=== PATIENT | male | born 1995 | race Caucasian/White ===

== ENCOUNTER → 2019-03-20 | Outpatient (REF) | payer OTHER | LOC: M SFHCLERA 15:30 | PROVIDERS: ATTEND Physician Assistant | DX: B02.9 Zoster without complications (principal) | CPT/HCPCS: 87252; G0463 ==

== ENCOUNTER 2021-01-19 05:23 | Inpatient (IN) | payer OTHER ==
[~2021-01-19] VITALS: Ht 170.2 cm; Wt 63.6 kg
[2021-01-19] MEDS ORDERED: IBUP1TAB7 PO (05:52)
[2021-01-19 06:11] LABS: HEMATOCRIT 46.3 % (42.0-52.0); HEMOGLOBIN 15.6 g/dl (13.5-17.5); MEAN CORPUSCULAR HGB CONC 33.7 g/dl (32.0-36.5); MEAN CORPUSCULAR VOLUME 83.1 fl (80.0-96.0); PLATELET COUNT, AUTOMATED 331 10^3/uL (150-450); RED BLOOD COUNT 5.57 10^6/uL (4.30-6.10); WHITE BLOOD COUNT 6.5 10^3/uL (4.0-10.0)
[2021-01-19 06:38] LABS: AMPHETAMINES LEVEL URINE NEGATIVE (NEGATIVE); BARBITURATES URINE NEGATIVE (NEGATIVE); BENZODIAZEPINES URINE NEGATIVE (NEGATIVE); CANNABINOIDS URINE NEGATIVE (NEGATIVE); COCAINE METABOLITE URINE NEGATIVE (NEGATIVE); METHADONE URINE NEGATIVE (NEGATIVE); OPIATES URINE NEGATIVE (NEGATIVE); PHENCYCLIDINE URINE NEGATIVE (NEGATIVE)
[2021-01-19 06:59] LABS: ACETAMINOPHEN LEVEL < 2.0 UG/ML (10.0-30.0); ALBUMIN 4.6 GM/DL (3.2-5.2); ALT/SGPT 19 U/L (12-78); BILIRUBIN,DIRECT 0.1 MG/DL (0.0-0.2); BILIRUBIN,TOTAL 0.3 MG/DL (0.2-1.0); BLOOD UREA NITROGEN 9 MG/DL (7-18); CALCIUM LEVEL 8.9 MG/DL (8.5-10.1); CARBON DIOXIDE LEVEL 28 MEQ/L (21-32); CHLORIDE LEVEL 105 MEQ/L (98-107); CREATININE FOR GFR 0.86 MG/DL (0.70-1.30); ETHYL ALCOHOL (ETHANOL) 0.155 % (0.000-0.010); GLOMERULAR FILTRATION RATE > 60.0 (>60); GLUCOSE, FASTING 100 MG/DL (70-100); POTASSIUM SERUM 4.4 MEQ/L (3.5-5.1); SALICYLATE LEVEL < 1.7 MG/DL (5.0-30.0); SODIUM LEVEL 141 MEQ/L (136-145); TOTAL PROTEIN 8.1 GM/DL (6.4-8.2)
[2021-01-19 16:00] LABS: RSV AMPLIFICATION NEGATIVE (NEGATIVE)
[2021-01-20] MEDS ORDERED: NICOTINE 21MG/24HR 1 EA TRANSDERMAL TD SCH (09:00)
[2021-01-20] MEDS ORDERED: traZODone 50 MG TAB PO PRN ×2 (19:00→19:10)
[2021-01-20] MEDS ORDERED: ACETAMINOPHEN TAB 650MG DOSE (2X325MG) PO PRN ×2 (19:00→19:10)
[2021-01-20] MEDS ORDERED: MOM 30ML SUSPENSION UDC PO PRN ×2 (19:00→19:10)
[2021-01-20] MEDS ORDERED: OLANZapine ORAL DISINTEGRATING TAB 5MG PO PRN ×2 (19:00→19:10)
[2021-01-20] MEDS ORDERED: hydrOXYzine 25 MG TAB PO PRN ×2 (19:00→19:10)
[2021-01-20] MEDS ORDERED: MAALOX 30 ML SUSP *UDC PO PRN ×2 (19:00→19:10)
[2021-01-20 21:34] VITALS: BP 138/95
[2021-01-20 22:00] VITALS: BP 138/95
[2021-01-20] MEDS ORDERED: LORazepam 2 MG TAB PO PRN (23:00)
[2021-01-20] MEDS: THIAMINE 100 MG TAB PO SCH (23:05)
[2021-01-21 06:00] VITALS: BP 131/72
[2021-01-21] MEDS: FOLIC ACID 1 MG TAB PO SCH (09:41)
[2021-01-21] MEDS: MULTIVITAMINS/MINERALS THERAP 1 TAB PO SCH (09:41)
[2021-01-21] MEDS: THIAMINE 100 MG TAB PO SCH ×2 (09:41→22:19)
--- NOTE | 2021-01-21 13:01 | MHHPEPDOC ---
General Date Of Admission: Jan 20, 2021 Legal Status: 9.39 Chief Complaint "I got drunk and I said I was going to off myself. 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 He reports that he "Went out and got drunk and his friend called MPs because he states "I might have said that I was offing myself." Reports depression off and on since age 14-13, but denies any increase depression and states he had one suicidal gesture by hanging but was interrupted by his Uncle. He denies that he is currently depressed or anxious, denies any psychotic symptoms. He is not interested in any medications for depression. States that he does not have problem with alcohol use. PER ED REPORT: Pt has been drinking alcohol. Pt was brought to the ED on a 9.41 after pt called CQ reporting feeling down/depressed and stating he wanted to kill himself. Per MP, pt. roommate was on CQ duty and came to him and stated he was having thoughts of harming himself. Pt states "I was feeling like shit yesterday, started drinking with the guys, thought I'd feel better, and blacked out texted CQ to come to my room. We went to smoke a cigarette and I'm pretty sure he just asked if I wanted to kill myself, I said yes and he called the MP's then I went back to my room to listen to music." Pt reports he has had fleeting suicidal thoughts since the age of 14. Reports no significant event, trauma, or abuse that resulted in his mental health problems as a child. Pt reports he has no specific stressors right now, and that "nothing really aggravates it, some days it just sits there, somedays are better than others. Reports having suicidal thoughts a couple times a week, but states "strong ones like last night, not as often." Pt reports he began feeling depressed at age 14 and sought outpatient therapy from ages [age] years, but reports he did not find therapy to be beneficial. Pt currently denies any OP tx. Pt reports when his suicidal thoughts are prominent, he stops eating, and is unable to sleep, and his depression increases. Pt reports he often hides in his room and waits for these thoughts to pass. Pt reports he has fleeting suicidal thoughts a couple of times per week. Pt reports having strong suicidal thoughts, such as last night, happens less often, about every couple of months. Pt reports that he has prepared to attempt to end his life, one time at the age of 16 and states he was going to hang himself, but that he stopped himself before he followed through with his plan. 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 Pt reports he has been at [facility] for almost 4 years and that he has had one deployment to [facility] in [id number]. When asked what pt.s goal from his visit was, pt stated "When I was drunk I wanted to feel better so i came to the hospital now I just want to go back to work." Psychiatric Review of Systems Depression (2 or more weeks): depressed mood, insomnia/hypersomnia (reports that during the week he only gets about 2-3 hours of sleep but will sleep excessively on the weekends. ), suicidal thoughts Grecia (4 or more days of): decreased need for sleep, denies Psychosis: denies PTSD: denies Anxiety: denies Past Psychiatric History Previous Psychiatric Diagnosis: ADD Previous Psychiatric Admissions: None in the past Suicide Attempts: States he had a suicidal gesture when he was 15-14, Uncle stopped him (he had a rope but did not actually make the attempt Psychiatric Follow-up: None currently, will follow up with [facility] Psychiatric medications: None Past Medical History Head Injury: No Seizures: No Hospitalizations: No Surgeries: No Family Medical/Psychiatric HX Psychiatric Disorders: No Addiction: No Suicide Attemps/Completions: No Addiction History alcohol (Last drink 01/20/21, drinks a fifth of ETOH daily, states that this is "not a problem" although drinks more on the weekend) Social History Childhood: Born in [place] to both parents. Describes his childhood as "normal" he has one older brother, 2 younger brothers. He was home schooled and then he started public school in the sixth grade Abuse/Trauma: Denies any childhood trauma or abuse. He also denies being a victim of crime. Current Living Situation: Living on post in the [facility]. Education: High school graduate. Employment:, Active duty soldier. Social Support: He denies that he has any social supports. Legal: None. Marital: Single, not , no children Stressors: Work. 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 Mental Status Examination General Appearance: well groomed, appears stated age, hospital scubs/clothing Build: average Demeanor: withdrawn, guarded Eye Contact: fair Activity: average Behavior: cooperative Speech: normal volume, reg/rate,rhythm,volume Mood: depressed Affect: constricted Thought Process: logical/linear Thought Content (Delusions): none reported Thought Content (Aggressive): none reported Perception (Hallucinations): none reported Perception (Other): none reported Cognition (Impairment of): none reported Cognition(Intelligence Est.): average Oriented: Awake, Alert, Oriented times three Insight: fair Judgment: Fair Psychosis: Denies Diagnoses Unspecified Depressive Disorder Alcohol Intoxications Alcohol Induced Depressive Disorder rule out Persistent Depressive Disorder A-FIB/CHADSVASC A-FIB History Current/History of A-Fib/PAF?: No Current PO Anticoag Therapy: No Assessment 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 He denies that he is currently depressed or anxious, denies any psychotic symptoms. He is not interested in any medications for depression. States that he does not have problem with alcohol use although admits to drinking daily. Patient's depression symptoms are depressed mood, anhedonia, insomnia, suicidal thoughts and he reports persistent depressive symptoms since he was a young teen. . He denies symptoms of grecia, psychotic symptoms, denies auditory, visual or tactile hallucinations. Denies delusions, paranoia, denies any history of trauma, denies anxiety. He denies any chronic or acute medical history. Reports that he has been diagnosed with ADD was taken Ritalin when he was younger but stated that it made him feel like a zombie. Mental status exam patient is well groomed, appears his stated age, wearing hospital scrubs and sitting in the chair in the interview room, sitting upright. He has average build, average demeanor & contact is good to fair activity is average. He is calm and cooperative in the interview, review somewhat withdrawn and guarded. Speech is normal rate, tone and volume. Mood is depressed. Affect is constricted. He is linear and goal oriented and his thought process. Denies any abnormal thought contents of d elusions, grandiosity, persecuted toward her. He obsessions, somatic complaints, no impairment of memory, attention or concentration. Intelligence is average. Patient's alert and oriented to person, place, time and situation. His insight and judgment is fair. Treatment plan to admit to my service. Patient declines any antidepressant medications. Reviewed antidepressant medications with him again. He declined. Encourage the patient to consider trazodone for sleep. Patient to be observed for 24-48 hours. 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 Patient was admitted on a [9.39] status. 2. Complete history was obtained. 3. With patients permission, family will be contacted and database will be expanded. 4. Patients medication regimen will be reviewed and changed accordingly. 5. Patient will be provided with protected environment. 6. Patient will be treated with individual, group, and milieu therapies. 7. Patient will receive supportive psych-education. 8. Discharge planning will commence immediately. 9. Outpatient follow-up treatment will be strongly recommended. 10. The initial treatment plan will focus initially on: * Depression. * Risk for suicide. ESTIMATED LENGTH OF STAY: 1-3 DAYS. TIME SPENT COUNSELING AND COORDINATING INITIAL CARE: 60 minutes. N/A-No Antipsychotics Vital Signs Vital Signs Date Time Temp Pulse Resp B/P (MAP) Pulse Ox O2 Delivery O2 Flow Rate FiO2 01/21/21 06:00 60 131/72 01/21/21 06:00 98.0 16 100 Room Air Medications Scheduled PRN Ibuprofen (Ibuprofen) 800 Mg Tablet, 800 MG PO TID PRN for PAIN, (Reported) Allergies Coded Allergies: No Known Allergies (Unverified , 01/19/21) THU MACKEY NP Jan 21, 2021 09:57
--- NOTE | 2021-01-21 13:06 | HPEPDOC ---
General Date of Admission Jan 20, 2021 at 19:10 Date of Service: Jan 21, 2021 Chief Complaint The patient is a 25-year-old male admitted with a reason for visit of Unspecified Depressive Disorder. 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 He is being examined here for medical history and physical. He does not offer any complaints today Home Medications Scheduled PRN Ibuprofen (Ibuprofen) 800 Mg Tablet, 800 MG PO TID PRN for PAIN, (Reported) Allergies Coded Allergies: No Known Allergies (Unverified , 01/19/21) Past Medical History Medical History Herpes zoster infection on the left chest in 2019, Heavy alcohol use, Depression Family History Significant Family History: Diabetes (Paternal grandfather) Social History * Smoker: current smoker, other (with a) Alcohol: occationally Drugs: denies A-FIB/CHADSVASC A-FIB History Current/History of A-Fib/PAF?: No Review of Systems Constitutional: Denies: Chills, Fever, Night Sweats Eyes: Denies: Pain, Vision change ENT: Denies: Head Aches, Ear Pain, Dysphagia Skin: Denies: Rash, Lesions, Breakdown Pulmonary: Denies: Dyspnea, Cough Cardiovascular: Denies: Chest Pain, Palpitations, Orthopnea, Paroxysmal Noc. Dyspnea, Lt Headedness Gastrointestinal: Denies: Nausea, Vomiting, Abdominal Pain, Diarrhea Genitourinary: Denies: Dysuria, Frequency, Incontinence, Retention Hematologic: Denies: Bruising, Bleeding Excessively Musculoskeletal: Denies: Neck Pain, Back Pain, Joint Pain, Muscle Pain, Spasms Neurological: Denies: Weakness, Numbness, Change in speech, Confusion Psych: Denies: Memory Issues Physical Examination General Exam: Positive: Alert, Cooperative, No Acute Distress Eye Exam: Positive: PERRLA, Conjunctiva & lids normal, EOMI; Negative: Sclera icteric ENT Exam: Positive: Atraumatic, Mucous membr. moist/pink, Pharynx Normal Neck Exam: Positive: Supple; Negative: JVD, thyromegaly Chest Exam: Positive: Clear to auscultation, Normal air movement Heart Exam: Positive: Rate Normal, Regular Rhythm, Normal S1, Normal S2; Negative: Murmurs, Rubs Telemetry: Positive: No significant arrhythmia Abdomen Exam: Positive: Normal bowel sounds, Soft; Negative: Tenderness, Hepatospenomegaly Extremity Exam: Positive: Normal pulses; Negative: Clubbing, Cyanosis, Edema Skin Exam: Positive: Nl turgor and temperature; Negative: Breakdown, Lesion Neuro Exam: Positive: Normal Gait, Normal Speech, Strength at 5/5 X4 ext, Normal Tone Psych Exam: Positive: Memory Intact, Oriented x 3 Vital Signs Vital Signs Date Time Temp Pulse Resp B/P (MAP) Pulse Ox O2 Delivery O2 Flow Rate FiO2 01/21/21 06:00 60 131/72 01/21/21 06:00 98.0 16 100 Room Air Assessment/Plan 25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 Depression as per psychiatry No active medical problems Plan / VTE VTE Prophylaxis Ordered?: No (freely ambulatory) NIYAH VASQUEZ MD Jan 21, 2021 11:11
[2021-01-21 14:09] VITALS: BP 144/76
[2021-01-21] MEDS: NICOTINE 21MG/24HR 1 EA TRANSDERMAL TD SCH (15:13)
[2021-01-21 16:23] VITALS: BP 116/63
[2021-01-22 07:09] VITALS: BP 118/59
[2021-01-22] MEDS: MULTIVITAMINS/MINERALS THERAP 1 TAB PO SCH (09:29)
[2021-01-22] MEDS: THIAMINE 100 MG TAB PO SCH ×2 (09:29→20:58)
[2021-01-22] MEDS: NICOTINE 21MG/24HR 1 EA TRANSDERMAL TD SCH (09:29)
[2021-01-22] MEDS: FOLIC ACID 1 MG TAB PO SCH (09:29)
--- NOTE | 2021-01-22 11:06 | MHIPNPDOC ---
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 He reports that he "Went out and got drunk and his friend called MPs because he states "I might have said that I was offing myself." Reports depression off and on since age [age], but denies any increase depression and states he had one suicidal gesture by hanging but was interrupted by his Uncle. He denies that he is currently depressed or anxious, denies any psychotic symptoms. He is not interested in any medications for depression. States that he does not have problem with alcohol use. PER ED REPORT: Pt has been drinking alcohol. Pt was brought to the ED on a 9.41 after pt called CQ reporting feeling down/depressed and stating he wanted to kill himself. Per MP, pt. roommate was on CQ duty and came to him and stated he was having thoughts of harming himself. Pt states "I was feeling like shit yesterday, started drinking with the guys, thought I'd feel better, and blacked out texted CQ to come to my room. We went to smoke a cigarette and I'm pretty sure he just asked if I wanted to kill myself, I said yes and he called the MP's then I went back to my room to listen to music." Pt reports he has had fleeting suicidal thoughts since the age of 14. Reports no significant event, trauma, or abuse that resulted in his mental health problems as a child. Pt reports he has no specific stressors right now, and that "nothing really aggravates it, some days it just sits there, somedays are better than others. Reports having suicidal thoughts a couple times a week, but states "strong ones like last night, not as often." Pt reports he began feeling depressed at age 14 and sought outpatient therapy from ages [age] years, but reports he did not find therapy to be beneficial. Pt currently denies any OP tx. Pt reports when his suicidal thoughts are prominent, he stops eating, and is unable to sleep, and his depression increases. Pt reports he often hides in his room and waits for these thoughts to pass. Pt reports he has fleeting suicidal thoughts a couple of times per week. Pt reports having strong suicidal thoughts, such as last night, happens less often, about every couple of months. Pt reports that he has prepared to attempt to end his life, one time at the age of 16 and states he was going to hang himself, but that he stopped himself before he followed through with his plan. 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 Pt reports he has been at [place] for almost 4 years and that he has had one deployment to [facility] in [id number]. When asked what pt.s goal from his visit was, pt stated "When I was drunk I wanted to feel better so i came to the hospital now I just want to go back to work." VITAL SIGNS: See below. CURRENT MEDICATIONS: See below. MENTAL STATUS EXAMINATION: Patient is a -year old male, who is . General Appearance: well groomed, appears stated age, hospital scrubs/clothing Build: average Demeanor: average Eye Contact: average Activity: average Behavior: cooperative Speech: normal volume, reg/rate,rhythm,volume Mood: euthymic, animated Affect: reactive, smiles on approach, congruent with mood Thought Process: logical/linear Thought Content (Delusions): none reported Thought Content (Aggressive): none reported Perception (Hallucinations): none reported Perception (Other): none reported Cognition (Impairment of): none reported Cognition(Intelligence Est.): average Oriented: Awake, Alert, Oriented times three Insight: good Judgment: good Psychosis: Denies DIAGNOSES: Unspecified Depressive Disorder Alcohol Intoxications Alcohol Induced Depressive Disorder rule out Persistent Depressive Disorder ASSESSMENT: Patient mood is uplifted today, denies depression and anxiety. He is smiling. States he is sleeping well. 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 He states that he is motivated to return to work. Denies any suicidal or homicidal ideations. He did not want medications, none ordered. He reports that his friends in the are his supports and that he does talk to them about everything. Discussed relationships in the past, denies current relationships, has had several relationships while in the and reports that it lasts about 5-6 months. Encouraged patient to talk about his dysthymic mood and to obtain of level of happiness in his life. MANAGEMENT PLAN: Discharge tomorrow TIME SPENT: 25 minutes. Vital Signs Vital Signs Date Time Temp Pulse Resp B/P (MAP) Pulse Ox O2 Delivery O2 Flow Rate FiO2 01/22/21 07:09 98.3 54 16 118/59 (78) 99 Room Air Current Medications Current Medications Medications (Trade) Dose Ordered Sig/Melecio Route PRN Reason Start Time Stop Time Status Last Admin Dose Admin Acetaminophen (Tylenol Tab) 650 mg Q6HP PRN PO HEADACHE or DISCOMFORT 01/20/21 19:00 01/20/21 19:11 DC Acetaminophen (Tylenol Tab) 650 mg Q6HP PRN PO HEADACHE or DISCOMFORT 01/20/21 19:10 Al Hydrox/Mg Hydrox/Simethicone (Mylanta) 30 ml Q4HP PRN PO HEARTBURN/INDIGESTION 01/20/21 19:00 01/20/21 19:11 DC Al Hydrox/Mg Hydrox/Simethicone (Mylanta) 30 ml Q4HP PRN PO HEARTBURN/INDIGESTION 01/20/21 19:10 Folic Acid (Folic Acid) 1 mg DAILY PO 01/21/21 09:00 01/22/21 09:29 Home Med (Med Rec Complete!) ASDIRECTED XX 01/20/21 08:05 01/20/21 08:04 DC Hydroxyzine HCl (Atarax) 25 mg TIDP PRN PO anxiety 01/20/21 19:00 01/20/21 19:11 DC Hydroxyzine HCl (Atarax) 25 mg TIDP PRN PO ANXIETY 01/20/21 19:10 Lorazepam (Ativan) 2 mg ASDIRECTED PRN PO SEE PROTOCOL 01/20/21 23:00 Magnesium Hydroxide (Milk Of Magnesia) 30 ml DAILYPRN PRN PO CONSTIPATION 01/20/21 19:00 01/20/21 19:11 DC Magnesium Hydroxide (Milk Of Magnesia) 30 ml DAILYPRN PRN PO CONSTIPATION 01/20/21 19:10 Multivitamins (Theragram-M) 1 tab DAILY PO 01/21/21 09:00 01/22/21 09:29 Nicotine (Nicoderm Cq 21mg) 1 patch DAILY TD 01/20/21 09:00 01/20/21 19:11 DC Nicotine (Nicoderm Cq 21mg) 1 patch DAILY TD 01/21/21 09:00 01/22/21 09:29 Olanzapine (ZyPREXA ZYDIS) 5 mg Q8H PRN PO AGITATION 01/20/21 19:00 01/20/21 19:11 DC Olanzapine (ZyPREXA ZYDIS) 5 mg Q8HP PRN PO AGITATION 01/20/21 19:10 Thiamine HCl (Thiamine HCl) 100 mg BID PO 01/20/21 23:00 01/23/21 09:01 01/22/21 09:29 Trazodone HCl (Desyrel) 50 mg QHSP PRN PO INSOMNIA 01/20/21 19:00 01/20/21 19:11 DC Trazodone HCl (Desyrel) 50 mg QHSP PRN PO INSOMNIA 01/20/21 19:10 Allergies Coded Allergies: No Known Allergies (Unverified , 01/19/21) THU MACKEY NP Jan 22, 2021 11:06
[2021-01-22] MEDS ORDERED: NICO21PAT TD (15:05)
[2021-01-22 16:08] VITALS: BP 125/70
[2021-01-22 16:44] VITALS: BP 125/70
[2021-01-23 06:32] VITALS: BP 137/65
[2021-01-23] MEDS: NICOTINE 21MG/24HR 1 EA TRANSDERMAL TD SCH (09:00)
[2021-01-23] MEDS: FOLIC ACID 1 MG TAB PO SCH (09:42)
[2021-01-23] MEDS: MULTIVITAMINS/MINERALS THERAP 1 TAB PO SCH (09:42)
[2021-01-23] MEDS: THIAMINE 100 MG TAB PO SCH (09:42)
--- NOTE | 2021-01-23 10:30 | MHDSPDOC ---
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 He reports that he "Went out and got drunk and his friend called MPs because he states "I might have said that I was offing myself." Reports depression off and on since age 14-13, but denies any increase depression and states he had one suicidal gesture by hanging but was interrupted by his Uncle. He denies that he is currently depressed or anxious, denies any psychotic symptoms. He is not interested in any medications for depression. States that he does not have problem with alcohol use. PER ED REPORT: Pt has been drinking alcohol. Pt was brought to the ED on a 9.41 after pt called CQ reporting feeling down/depressed and stating he wanted to kill himself. Per MP, pt. roommate was on CQ duty and came to him and stated he was having thoughts of harming himself. Pt states "I was feeling like shit yesterday, started drinking with the guys, thought I'd feel better, and blacked out texted CQ to come to my room. We went to smoke a cigarette and I'm pretty sure he just asked if I wanted to kill myself, I said yes and he called the MP's then I went back to my room to listen to music." Pt reports he has had fleeting suicidal thoughts since the age of 14. Reports no significant event, trauma, or abuse that resulted in his mental health problems as a child. Pt rep orts he has no specific stressors right now, and that "nothing really aggravates it, some days it just sits there, somedays are better than others. Reports having suicidal thoughts a couple times a week, but states "strong ones like last night, not as often." Pt reports he began feeling depressed at age 14 and sought outpatient therapy from ages [age] years, but reports he did not find therapy to be beneficial. Pt currently denies any OP tx. Pt reports when his suicidal thoughts are prominent, he stops eating, and is unable to sleep, and his depression increases. Pt reports he often hides in his room and waits for these thoughts to pass. Pt reports he has fleeting suicidal thoughts a couple of times per week. Pt reports having strong suicidal thoughts, such as last night, happens less often, about every couple of months. Pt reports that he has prepared to attempt to end his life, one time at the age of 16 and states he was going to hang himself, but that he stopped himself before he followed through with his plan. Pt currently is an active duty soldier and [facility] in [facility] ([facility] Pt reports he has been at [employer] for almost 4 years and that he has had one deployment to [facility] in [id number]. When asked what pt.s goal from his visit was, pt stated "When I was drunk I wanted to feel better so i came to the hospital now I just want to go back to work." VITAL SIGNS: See below. CONSULTANTS INVOLVED: See Medical H + P by Hospitalist TREATMENT AND PROGRESS ON THE UNIT: Patient was admitted to the [facility] on a 9.39 legal status he was afforded the following treatment modalities: 1) Individual Therapy 2) Group Therapy 3) Medication Management 4) Milieu Therapy 5) Safe Environment HOSPITAL COURSE: Patient was admitted to [facility] on a 9.39 legal status. He had r efused to consider medications for depression although he had reported a long history of Dysthymia since the age of 14 or 15. He states that he has minimal periods where he is happy, has had past relationships that only go for 5-6 months but has not been elated with relationships. We had discussed being truthful and honest in future therapies about some of this dysthymia that he is reporting, as well as, his alcohol use. He was not receptive to any Rx for alcohol. He was visible mostly withdrawn to his room, preferring to sleep. He did not report continued depression or anxiety or any suicidal ideations and he met criteria for discharge today. DISCHARGE ASSESSMENT: In today's interview, patient is alert and oriented, pts dress is appropriate. Hygiene and grooming is well-kempt. Smiles on approach and is pleasant and engaged in the interview. Denies depression and anxiety. Denies suicidal and homicidal ideation, planning or intent. Denies and is not observed with charan, psychotic symptoms of delusions, bizarre thinking, obsessions, paranoia, ruminations illogical thoughts, flight of ideas or having poor insight and judgement. Patient has normal mentation, declines further hospitalization on a voluntary status and meets criteria for discharge today. Patient encouraged to return to hospital if symptoms worsen or change and encouraged to call unit if he/she/they needs to speak to provider for questions regarding medications or care. 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 Speech: Is fluid, conversant, normal rate, tone and volume Language skills are intact Thought processes including: linear and goal oriented Thought content: denies depression and anxiety. Denies suicidal/homicidal ideation, planning or intent. Abstract reasoning, and computation: fair Description of associations: denies, none observed Description of abnormal or psychotic thoughts: denies, none observed. Judgment: fair Insight: fair Orientation: alert and oriented to person, place, time and situation Recent and remote memory: intact Attention span and concentration: good Language: expansive Fund of knowledge: average Mood: Euthymic Mood Affect: reactive MEDICATIONS ON DISCHARGE: See Medication Reconciliation PLAN/FOLLOWUP ARRANGEMENTS: [facility] The amount of time spent in the coordination of care for this patient was approximately 25 minutes. ETOH/Disorder Med Rx ETOH/DRUG DISORDER RX: Offrd @ d/c & pt refused Vital Signs/I&Os Vital Signs Date Time Temp Pulse Resp B/P (MAP) Pulse Ox O2 Delivery O2 Flow Rate FiO2 01/23/21 06:32 97.3 72 16 137/65 (89) 99 Room Air Medications Scheduled Nicotine (Nicotine Patch) 21 Mg Patch.td24, 1 PATCH TD DAILY for Nicotine Withdrawal, #7 Scheduled PRN Ibuprofen (Ibuprofen) 800 Mg Tablet, 800 MG PO TID PRN for PAIN, (Reported) Allergies Coded Allergies: No Known Allergies (Unverified , 01/19/21) THU MACKEY NP Jan 23, 2021 10:30
== END 2021-01-23 11:05 | disposition home or self-care (01) | DRG 881 ==
LOC: M ED 05:23 → M ED INP 01-20 19:10 → M PSY 01-20 21:25
PROVIDERS: ADMIT Psychiatry & Neurology Psychiatry; ATTEND Psychiatry & Neurology Psychiatry
DX: F32.9 Major depressive disorder, single episode, unspecified (principal); F10.14 Alcohol abuse with alcohol-induced mood disorder; F10.121 Alcohol abuse with intoxication delirium; R45.851 Suicidal ideations; F34.1 Dysthymic disorder; Z20.822 Contact with and (suspected) exposure to COVID-19; F17.210 Nicotine dependence, cigarettes, uncomplicated